=== PATIENT | male | born 1955 | race Caucasian/White ===

== ENCOUNTER → 2017-10-06 | Outpatient (CLI) | payer OTHER ==
[~2017-10-06] MED LIST: GADOBUTROL 10 ML VIAL IVP ONE
== END ==
LOC: FIMAGING 11:43
PROVIDERS: ATTEND Specialist
DX: N36.8 Other specified disorders of urethra (principal)
CPT/HCPCS: A9585

== ENCOUNTER 2017-10-14 07:15 | Observation (INO) | payer OTHER ==
--- NOTE | 2017-10-14 13:45 | GHP ---
[f rep st] PREOP HISTORY AND PHYSICAL Amended report HISTORY OF PRESENT ILLNESS: This gentleman was referred because of urethral stricture symptoms with splayed urination and also he has had some redness at the meatus of the penis. On exam he had a significant meatal stenosis with a firm area to approximately 1 inch below the meatus on the urethra, and there was no blood coming per the urethra. He had had a CAT scan that showed pelvic lymphadenopathy and inguinal lymphadenopathy, question metastatic cancer or lymphoma. I did a cystoscopy in the office that showed he had severe meatal stenoses with abnormal urethral tissue appearance, and there was a biopsy of the urethra performed. 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 So, P16 positive. He then had an MRI of the corpora and penis as well as pelvis and confirmed his lymphadenopathy. His corporal body seemed to be intact and there seemed to be no involvement of the corpora from this distal urethral cancer. After reviewing up to date and discussing his case at [facility], it has been elected that he should undergo a distal urethrectomy and attempted penile salvage with a mid penile shaft urethral placement. Of interest, he also on MRI has a lesion in the bladder that is concerning for transitional cell carcinoma and so he will undergo cystoscopy and biopsy of that lesion and at the same time, probably will undergo biopsy of lymph node with a needle biopsy to confirm positive brittany disease. It is unlikely with a distal urethral cancer, HPV positive, that it is probably going to be invasive and will be a T4 with node positive disease. Will undergo postop adjuvant chemotherapy with possible radiation and potential lymph node dissection. This will be discussed after final pathology. PAST MEDICAL HISTORY: He has had abnormal prostate exams. He has had herpetic lesions of the genitalia. He has had kidney stones. He has a lymphadenopathy. PAST SURGICAL HISTORY: Hernia repair. MEDICATIONS: No current medications. ALLERGIES: Acetaminophen. FAMILY HISTORY: No significant history noted. SOCIAL HISTORY: Rare alcohol consumption, and he is a former tobacco smoker. He is . His has no history of genitourinary pathology. IMMUNIZATIONS: Up to date. REVIEW OF SYSTEMS: Negative cardiac, respiratory, GI and endocrine. has noted the abnormal urine stream. He has had no peripheral extremity lower edema. PHYSICAL EXAMINATION: VITAL SIGNS: Stable. CHEST: Clear. HEART: Regular rate and rhythm. ABDOMEN: Normal. No organomegaly, rebound, or guarding. LOWER EXTREMITIES: Normal. GENITAL: Penis is circumcised with no lesions present. He has the meatus and fossa firmness with indentation of the meatus that implies that this is not a glans penis squamous cell involvement, but more of a distal urethral involvement. Groin has the severe lymphadenopathy right greater than left. NEUROLOGIC: He is oriented x3. He has had no neurologic abnormalities noted. GENERAL APPEARANCE: Denies any weight loss. PLAN: At the present time we have reviewed his MRI and CT scan with his biopsy results and reviewed his case at the [facility], and he is to undergo a distal urethrectomy, node biopsy of the groin, and a cystoscopy with a possible TURBT. Of note, this had been scheduled through the office to be done Wednesday morning and we were unable to get the patient contacted to confirm he was to have the surgery on multiple attempts and he did show up Wednesday morning to the operating suite to undergo surgery. That was canceled because of scheduling issues. He did go home and had breakfast and then we were able to reschedule it for 3 o' clock so he would have a window of time where had had nothing to eat or drink prior to anesthesia. /[id number]/MODL Add acc#, 10/14/17, courtney PANDYA
[2017-10-14] MEDS ORDERED: ceFAZolin 2 GM/SWFI 2 GM/20 ML SYR IVP ONE (14:13)
[2017-10-14] MEDS ORDERED: LIDOCAINE 1% 2 ML INJ ID PRN (14:16)
[2017-10-14] MEDS ORDERED: LR 1,000 ML IV ONE (14:16)
[2017-10-14] MEDS ORDERED: LIDOCAINE 1% 2 ML INJ ONE (14:26)
[2017-10-14] MEDS ORDERED: LIDOCAINE 2% JELLY 20 ML (UROJECT) ONE (15:07)
[2017-10-14] MEDS ORDERED: MIDAZOLAM 2 MG/2 ML VIAL ONE (15:50)
[2017-10-14] MEDS ORDERED: MIDAZOLAM 2 MG/2 ML VIAL IVP ONE (15:51)
--- NOTE | 2017-10-14 15:52 | PDANEPAE ---
ANE History of Present Illness bladder cancer ANE Past Medical History - Cardiovascular History Hx Hypertension: No Hx Arrhythmias: No Hx Chest Pain: No Hx Coronary Artery / Peripheral Vascular Disease: No Hx CHF / Valvular Disease: No Hx Palpitations: No - Pulmonary History Hx COPD: No Hx Asthma/Reactive Airway Disease: No Hx Recent Upper Respiratory Infection: No Hx Oxygen in Use at Home: No Hx Sleep Apnea: No Sleep Apnea Screening Result - Last Documented: Positive - Neurologic History Hx Cerebrovascular Accident: No Hx Seizures: No Hx Dementia: No - Endocrine History Hx Diabetes: No - Renal History Hx Renal Disorders: No Renal History Comment: kidney stones, spot in bladder on MRI, urethra obstructed - Liver History Hx Hepatic Disorders: No - Neurological & Psychiatric Hx Hx Neurological and Psychiatric Disorders: No - Cancer History Hx Cancer: Yes Cancer History Comment: poss bladder, basal skin cancers - Congenital Disorder History Hx Congenital Disorders: No - GI History Hx Gastrointestinal Disorders: No - Surgical History Prior Surgeries: double lap inguinal hernia, age 13 and age 16 UTI'S hospitalized ANE Review of Systems Review of Systems: - Exercise capacity METS (RN): 4 METS ANE Patient History - Allergies Allergies/Adverse Reactions: acetaminophen [Acetaminophen] Allergy (Intermediate, Verified 02/29/16 10:12) Hives ciprofloxacin [From Cipro] Allergy (Verified 10/13/17 10:55) kidney stones - Home Medications Home Medications: NK [No Known Home Meds] 10/13/17 [Last Taken Unknown] - NPO status NPO Since - Liquids (Date): 10/14/17 NPO Since - Liquids (Time): 13:15 NPO Since - Solids (Date): 10/14/17 NPO Since - Solids (Time): 07:30 - Smoking Hx Smoking Status: Former smoker ANE Labs/Vital Signs - Vital Signs Vital Signs: reviewed preoperatively; see RN documention for details Blood Pressure: 130/85 Heart Rate: 103 Respiratory Rate: 20 O2 Sat (%): 97 Height: 177.8 cm Weight: 88.451 kg ANE Physical Exam - Airway Neck exam: FROM Mallampati Score: Class 1 Mouth exam: normal dental/mouth exam - Pulmonary Pulmonary: no respiratory distress - Cardiovascular Cardiovascular: regular rate and rhythym - ASA Status ASA Status: II ANE Anesthesia Plan Anesthesia Plan: general endotracheal anesthesia
[2017-10-14] MEDS ORDERED: PROPOFOL 200 MG/20 ML VIAL ONE ×2 (15:54→16:42)
[2017-10-14] MEDS ORDERED: fentaNYL 100 MCG/2 ML INJ ONE ×2 (15:54)
[2017-10-14] MEDS ORDERED: ROCURONIUM 50 MG/5 ML VIAL ONE (15:54)
[2017-10-14] MEDS ORDERED: BUPIVACAINE/EPI 0.5% 30 ML SDV ONE (16:22)
[2017-10-14] MEDS ORDERED: HYDROmorphONE/DILAUDID 2 MG/ML INJ ONE (16:41)
[2017-10-14] MEDS ORDERED: fentaNYL 100 MCG/2 ML INJ IVP PRN (17:13)
[2017-10-14] MEDS ORDERED: HYDROmorphONE/DILAUDID 1 MG/ML INJ IVP PRN (17:13)
[2017-10-14] MEDS ORDERED: NALOXONE HCL 0.4 MG/ML INJ IVP PRN ×2 (17:13→18:34)
[2017-10-14] MEDS ORDERED: ONDANSETRON 4 MG/2 ML VIAL IVP PRN ×2 (17:13→18:34)
[2017-10-14] MEDS ORDERED: DEXAMETHASONE 4 MG/ML VIAL IVP PRN (17:13)
[2017-10-14] MEDS ORDERED: BACITRACIN ZINC 14.2 GM OINTTUBE TP ONE (17:57)
[2017-10-14] MEDS ORDERED: ONDANSETRON 4 MG/2 ML VIAL ONE (18:10)
[2017-10-14] MEDS ORDERED: DEXAMETHASONE 4 MG/ML VIAL ONE (18:10)
--- NOTE | 2017-10-14 18:22 | POSTANESTH ---
Post Anesthetic Evaluation Cardiovascular Status: Normal, Stable Respiratory Status: Normal, Stable Level of Consciousness/Mental Status: Can Participate in Eval Pain Control: Adequate, Prn Tx Ordered Nausea/Vomiting Control: Adequate, Prn Tx Ordered Complications Possibly Related to Anesthesia: None Noted
[2017-10-14] MEDS ORDERED: ZOLPIDEM TARTRATE 5 MG TAB PO PRN (18:34)
[2017-10-14] MEDS ORDERED: ACETAMINOPHEN 325 MG TAB PO PRN (18:34)
[2017-10-14] MEDS ORDERED: OXYCODONE/APAP 5/325 TAB PO PRN (18:34)
[2017-10-14] MEDS ORDERED: HYDROmorphONE/DILAUDID 6 MG/30 ML PCA IV PRN (18:34)
[2017-10-14] MEDS ORDERED: ONDANSETRON DISINTEGRATING 4 MG TAB PO PRN (18:34)
--- NOTE | 2017-10-14 18:38 | POSTOPPROG ---
Post Op Note Date of Operation: 10/14/17 Surgeon: Danny Coburn Anesthesia: LMA Pre-op Diagnosis: urethral cancer, TCC bladder Procedure: urethrectomy, node bx, cysto Inf/Abcess present in the surg proc area at time of surgery?: No EBL: Minimal Drains: Other (fernández) Specimen(s): sent--dictated
[2017-10-14] MEDS ORDERED: IBUPROFEN 600 MG TAB PO PRN (18:55)
--- NOTE | 2017-10-14 19:21 | GOP ---
[f rep st] OPERATIVE REPORT DATE OF OPERATION: 10/14/2017 SURGEON: Danny Coburn MD PREOPERATIVE DIAGNOSIS: 1. Carcinoma in situ, distal urethra. 2. Bladder lesion. POSTOPERATIVE DIAGNOSIS: 1. Carcinoma in situ, distal urethra. 2. Bladder tumor. PROCEDURE PERFORMED: FINDINGS: Needle biopsy of both right groin and left groin palpable nodes. Frozen section on the ri ght side noted no brittany tissue and no diagnostic features and the left side I sent for permanent. Th carmelo biopsies were done and then the tumor from the urethra noted initially the proximal urethral louis in was invaded, so then I went back and took another centimeter of urethra and the proximal end of th at was without cancer. DESCRIPTION OF PROCEDURE: Cystoscopy, bilateral inguinal lymph node biopsy, needle biopsy, and dista l penectomy with penile salvage procedure. Underwent general anesthesia, was prepped and draped in normal sterile fashion and had the right ingu inal lymph nodes palpated and well away from the vessels of the leg. Pranav-Cut needle was passed and a biopsy was obtained. I did 4 biopsy passes and all of them were into the brittany tissue. Frozen sect ion revealed no significant pathology. I did 2 needle passes of the left inguinal node that was palp able and sent those for permanent sections. There was no bleeding significant after that procedure and then with the appropriate time-out, I outl ined the dissection margins of the meatus and urethra, incised the skin in the mid part of the penis and then went up to the mid penile urethra. Dissected out the corporal bodies and dissected that up. Went around the glans so that there would be a skin margin from the meatus, 0.5 cm in resection mar gin. Then, that was taken down. All the tissue grossly felt normal as far as the dissection margin and the glans and the urethral margin. Took that off the corporal body and then went lateral in an a ttempt to make sure there was no tumor palpable noted. There was a nodular area into the left side of the glans that was subcutaneous and I excised that and it came back squamous cell carcinoma, invasive in the nodule, so that was taken out at the mid ureth ra and then I started closing that and then got the phone call on the frozen section. The proximal m argin was positive, so I went back and took an additional 1 cm of urethra and dissected that and that proximal margin came back without malignancy. Then, at that point, I did the urethrostomy near the penoscrotal junction and then approximated the corpora in the midline. There was no corporotomy iden tified. I was able to reapproximate the glans penis and fashion it with interrupted 4-0 Vicryl sutures and th en the glans skin was approximated with a 5-0 Vicryl stitch. The urethra was matured with 4-0 Vicryl and then the skin and corporal bodies and subcutaneous tissue approximated with 4-0 Vicryl. Then, tasha aparicio had a sterile dressing placed, but prior to that I did a cystoscopy with a flexible scope and revea led he had transitional cell carcinoma of the bladder. Because of the frozen section, he may need fu rther extirpative surgery. I elected not to do the TURBT at this time and will need to do that at a l ater time. That appeared to be low-grade and was as seen on the MRI on the posterior bladder. After that, I placed a 16 Watkins catheter. Urine was clear and I had put a Coban dressing on the penis. Lorenzo aparicio took the tourniquet off the penis and there was no significant bleeding or staining of the dressing . At the present time, he will be admitted postoperatively. I discussed with the the preliminary biopsy reports and my impression is that with the positive margin noted in the fibrous tissue on the left side of the penis subcutaneously. The question is myers s he need a penectomy, glansectomy for attempted excision of that or should we go ahead with adjuvant chemotherapy or radiation and then at that point consider further treatment. I will discuss that wi th him and his family and then take it back to tumor board. At the present time, I have elected to n ot do the penectomy in light of the frozen section because the gentleman was initially somewhat oppos ed to that idea and we will discuss it further. He will be transferred to the recovery room and be admitted postoperatively and I will discuss the fi ndtrae with his . SURGEON: Danny Coburn MD /[id number]/MODL
[2017-10-14] MEDS: D5W 1/2 NS 1,000 ML IV SCH (20:07)
[2017-10-14 22:02] VITALS: RESP 16
[2017-10-14] MEDS: oxyCODONE IR 5 MG TAB PO PRN (23:31)
[2017-10-15] MEDS: oxyCODONE IR 5 MG TAB PO PRN (03:04)
[2017-10-15] MEDS: D5W 1/2 NS 1,000 ML IV SCH (05:06)
[2017-10-15 08:57] VITALS: O2SAT 90
[2017-10-15 11:30] VITALS: BP 117/67; PULSE 90; TEMP 98.1
--- NOTE | 2017-10-15 16:29 | ASMTCMCOM ---
CM Note CM Note Notes: Pt admitted for surgery with Dr Coburn for bladder cancer today. Pt recovering. Dr Coburn needs to discuss findings with pt which determine next steps. Pt's DC needs are TBD. CM will continue to follow. Date Signed: 10/15/2017 04:29 PM Electronically Signed By:Daiana Vallejo LCSW
--- NOTE | 2017-10-15 20:57 | GDS ---
[f rep st] DISCHARGE SUMMARY ADMISSION DIAGNOSIS: Urethral carcinoma. DISCHARGE DIAGNOSIS: Squamous cell carcinoma of the urethra, with a metastatic nodule adjacent to th e subcutaneous penis and lymph nodes, pathology pending on final. HOSPITAL COURSE: Gentleman was an a.m. admission and had the above distal urethrectomy, urethrostomy , cystoscopy, confirming a bladder tumor that has not been resected at the present time and lymph nod e biopsies. Postop day 1, he is doing well and catheter is draining well. I undressed the glans pen is and he had good appearance of the glans penis. It was redressed and will leave the dressing on. I will plan to see him on Wednesday for removal of the dressing and may pull his catheter at that khari e, depending on the findings. Final pathology is pending. I have discussed with him and his in detail the potential clinical options based on the final pathology, and he may need a distal penecto my. Will recommend that he see oncologist, and I have asked Dr. Franco to visit with him prior to h is discharge if possible, and no complications encountered. Blood loss during the procedure was mini mal and at the present time, he is doing well. Discharge home and follow up as outlined. Pathology pending. /[id number]/MODL
--- NOTE | 2017-10-15 21:02 | GCON ---
[f rep st] CONSULTATION MEDICAL ONCOLOGY CONSULTATION CONSULTATION REQUESTED BY: Dr. Danny Coburn. REASON FOR CONSULTATION: Further workup and management of squamous cell carcinoma of the urethra. RECOMMENDATIONS: 1. As an outpatient, I would do a PET-CT scan to further evaluate the extent of disease. 2. Depending on the extent of disease, patient will be treated with palliative for curative intent. 3. Since this is a fairly uncommon tumor without large randomized series to help define definitive t herapy, we will use general oncology principles for workup and treatment recommendations in addition to querying the authors of published series of this tumor. 4. This does appear to be an HPV-positive tumor. It is unclear with this particular location whethe r this in part is a better prognosis or not. ASSESSMENT: This 62-year-old white male presented with complaints of an abnormal urinary stream whic h began approximately at the end of July 2017. Initially, this was felt to perhaps represent an i nfection or perhaps a stone in his urethra. The patient was initially treated with antibiotics witho ut benefit. He subsequently was referred to Dr. Danny Coburn, who did a urethroscopy with biopsy. Th e patient was found to have HPV positive squamous cell carcinoma. Patient also noticed lymph node en largement in his right and left groin. The right side was noted first. He has noticed no other lymp hadenopathy. He has had no systemic symptoms. He denies any cough, shortness of breath, pain, ortiz e in bowel habits. The patient does have some history of coal tar exposure at work. However, this did not appear to be particularly prominent. He had a several-year history of cigarette smoking, but quit approximately 8 years ago. If the patient does not have evidence of distant metastatic disease, he will be treated with curative intent. Various regimens have been used in the past. Some have been patterned after treatment for squamous cell carcinoma of the anus. This would include either mitomycin plus 5-FU or cisplatin plus 5-FU in addition to radiation. Surgery has been reserved for combined modality failures. I spoke i n general terms with the patient about curative versus palliative intent. We also discussed my modal ity therapy. At this time, he will be discharged to home. I have given my card, and I asked him to call on Miriam alexis to establish a followup appointment. Also a note to my office regarding the fact that he will be c alling for an appointment and we will get him seen next week in a timely fashion. Part of his workup will include a PET-CT scan. This will need to wait at least 2 weeks from his recent surgery to mini antonio the chance of false positives. HISTORY OF PRESENT ILLNESS: Please see assessment. PAST MEDICAL HISTORY: Essentially otherwise unremarkable. SOCIAL HISTORY: The patient formerly smoked approximately a pack and half cigarettes per day. He qu it 8 years ago. He drinks alcohol only rarely. 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 FAMILY HISTORY: Remarkable for a niece with ovarian cancer and an uncle with head and neck cancer. REVIEW OF SYSTEMS: Remarkable for the abnormal urinary stream and his inguinal lymphadenopathy. His 10 system review is otherwise unremarkable. PHYSICAL EXAMINATION: GENERAL: Reveals a well-developed, alert and articulate white male in no acut e distress. HEENT: Exam is unremarkable. NECK: His neck shows no adenopathy. LUNGS: Clear to au scultation and percussion. CARDIAC: Exam shows regular rate and rhythm. ABDOMEN: Abdominal exam s hows soft abdomen with active bowel sounds. No hepatosplenomegaly is noted. GENITOURINARY: His pen is is wrapped, and I have not taken down the dressing. EXTREMITIES: His lower extremities show no e raffy. LYMPHATIC: His lymph nodes show bilateral inguinal lymphadenopathy that is firm, round, and a pproximately 2 cm in diameter bilaterally. Thank you very much for allowing me to participate in this pleasant gentleman's oncologic care. We l billie forward to assisting in his management going forward. /[id number]/MODL
== END 2017-10-15 17:51 | disposition home or self-care (01) ==
LOC: F3E 13:25 → F1N 18:14
PROVIDERS: ADMIT Specialist; ATTEND Specialist
DX: C68.0 Malignant neoplasm of urethra (principal); C67.9 Malignant neoplasm of bladder, unspecified; C60.1 Malignant neoplasm of glans penis; R59.1 Generalized enlarged lymph nodes; B97.7 Papillomavirus as the cause of diseases classified elsewhere; Z87.442 Personal history of urinary calculi; Z87.891 Personal history of nicotine dependence; Z87.440 Personal history of urinary (tract) infections
CPT/HCPCS: 38505; 53220; 54120; G0378; J0690; J1100; J1170; J2250; J2405; J2704; J3010

== ENCOUNTER → 2017-12-03 | Day surgery (SDC) | payer OTHER | END | disposition home or self-care (01) | LOC: FIMAGING 12:26 | PROVIDERS: ATTEND Physician Assistant | PROC: 02HV33Z Insertion of Infusion Device into Superior Vena Cava, Percutaneous Approach (ICD-10-PCS; principal; 2017-12-03) | DX: C60.9 Malignant neoplasm of penis, unspecified (principal) | CPT/HCPCS: 36569; 77001; C1751 ==

== ENCOUNTER 2018-03-04 18:11 | Emergency (ER) | payer OTHER ==
--- NOTE | 2018-03-04 18:55 | EDPHY ---
H & P Stated Complaint: DVT L LEG CONFIRMED U/S/URINARY TRACT CA RADIATION CHEMO 1 MONTH Time Seen by Provider: 03/04/18 18:37 HPI/ROS: Chief complaint: Left leg DVT History of present illness: This is a 62-year-old male who was sent from Radiology for left leg DVT. Patient has a history of urethral and bladder cancer. He is followed by Dr. Franco of Oncology. His last treatment was a month ago. He developed some soreness in the left leg over the last few days. Outpatient ultrasound was obtained which showed a DVT in the gastrocnemius vein. He denies fevers. He denies chest pain, shortness of breath or cough. He has never had a DVT before. He is not on any blood thinning medications. Review of systems: A 10 point review of systems was obtained and other than described above was negative - Personal History Current Tetanus Diphtheria and Acellular Pertussis (TDAP): Yes Tetanus Vaccine Date: within 10 years - Medical/Surgical History Hx Asthma: No Hx Chronic Respiratory Disease: No Hx Diabetes: No Hx Cardiac Disease: No Hx Renal Disease: No Hx Cirrhosis: No Hx Alcoholism: No Hx HIV/AIDS: No Hx Splenectomy or Spleen Trauma: No Other PMH: Smokes marijuana, hernia repair, diverticulitis, URINARY TRACT CA, TREATED CHEMO/RADIATION JANUARY/2018 - Social History Smoking Status: Former smoker - Physical Exam Exam: General Appearance: Alert and no distress. Eyes: Pupils equal and round no injection. Respiratory: Chest is non tender, lungs are clear to auscultation. Cardiovascular: regular rate and rhythm. DP and PT pulses 2+. Gastrointestinal: Abdomen is soft and non tender, no masses, bowel sounds normal. Musculoskeletal: Neck is supple and non tender. Extremities have full range of motion and are non tender. Skin: No rashes or lesions. Neurological: Alert and oriented x4. Strength and sensation intact and symmetrical. Constitutional: Initial Vital Signs Temperature (C) 36.5 C 03/04/18 18:16 Heart Rate 105 H 03/04/18 18:16 Respiratory Rate 16 03/04/18 18:16 Blood Pressure 122/76 H 03/04/18 18:16 O2 Sat (%) 94 03/04/18 18:16 O2 Delivery Mode Room Air Allergies/Adverse Reactions: acetaminophen [Acetaminophen] Allergy (Intermediate, Verified 02/29/16 10:12) Hives ciprofloxacin [From Cipro] Allergy (Verified 10/13/17 10:55) kidney stones Home Medications: Medication Instructions Recorded Fentanyl 03/04/18 LORAZEPAM 03/04/18 Oxycodone HCl 03/04/18 Rivaroxaban [Xarelto 15mg (*)] 15 mg PO BID 21 Days tab 03/04/18 Medical Decision Making - Diagnostics Imaging: Discussed imaging studies w/ call or contact centre manager Radiologist ED Course/Re-evaluation: Patient was discussed with my secondary supervising physician Dr. Leticia Arthur. Patient presents for a DVT in the left leg. The leg is neurovascularly intact. I have reviewed the ultrasound report,he does not appear to be have a heavy clot burden. No evidence PE. Patient had blood studies obtained today including CBC and chemistry. He has a mild anemia which appears to be his baseline as compared to previous studies. PT/PTT are obtained. He is started on Xarelto. He is discharged with a prescription for 3 weeks worth. He understands that when he finishes this prescriptions he still needs to continue the medication but will need to discuss this with his balance truing inspector/oncologist to determine how long he needs to be on treatment for. Strict return precautions were given. Differential Diagnosis: Included but not limited to DVT, superficial thrombophlebitis, unlikely PE or other complications - Data Points Medications Given: Discontinued Medications Rivaroxaban (Xarelto) 15 mg PO EDNOW ONE Stop: 03/04/18 19:14 Last Admin: 03/04/18 19:24 Dose: 15 mg Departure - Departure Disposition: Home, Routine, Self-Care Clinical Impression: DVT (deep venous thrombosis) Qualifiers: DVT location: lower extremity Affected thrombotic vein of extremity: unspecified lower extremity distal vein Chronicity: acute Laterality: left Qualified Code(s): I82.4Z2 - Acute embolism and thrombosis of unspecified deep veins of left distal lower extremity Condition: Good Instructions: Rivaroxaban (By mouth), Deep Vein Thrombosis (ED) Additional Instructions: Follow-up with your oncologist on Wednesday or Wednesday for recheck You were given your 1st dose of blood thinning medication in the emergency room tonight. Please start taking it tomorrow morning twice a day for 3 weeks. When he finished this 3 week course that I have prescribed you are not finished with your treatment. You will need to discuss how long You need to be treated for with your balance truing inspector. If for any reason you are unable to get your blood thinning medication tomorrow please contact the emergency room or your oncologist immediately If symptoms worsen or new symptoms develop return to the emergency room for recheck Referrals: Danny Coburn MD [Primary Care Provider] - As per Instructions Celso Franco MD [Medical Doctor] - As per Instructions Prescriptions: Rivaroxaban [Xarelto 15mg (*)] 15 mg PO BID 21 Days tab
[2018-03-04 19:07] LABS: INR 1.06 (0.83-1.16)
[2018-03-04] MEDS ORDERED: RIVAROXABAN 15 MG TAB PO ONE (19:13)
[2018-03-04 19:41] VITALS: BP 124/74
== END 2018-03-04 19:39 | disposition home or self-care (01) ==
DX: I82.4Z2 Acute embolism and thrombosis of unspecified deep veins of left distal lower extremity (principal); Z85.51 Personal history of malignant neoplasm of bladder; Z85.54 Personal history of malignant neoplasm of ureter; Z87.891 Personal history of nicotine dependence

== ENCOUNTER 2018-04-26 10:11 | Day surgery (SDC) | payer OTHER ==
[2018-04-26] MEDS ORDERED: NS 1,000 ML IV SCH (10:45)
[2018-04-26] MEDS ORDERED: MEPERIDINE 25 MG/ML SYR IVP PRN (10:45)
[2018-04-26] MEDS ORDERED: FLUMAZENIL 0.5 MG/5 ML MDV IVP PRN (10:45)
[2018-04-26] MEDS ORDERED: MIDAZOLAM 2 MG/2 ML VIAL IVP PRN (10:45)
[2018-04-26] MEDS ORDERED: fentaNYL 100 MCG/2 ML INJ IVP PRN (10:45)
[2018-04-26] MEDS ORDERED: NALOXONE HCL 0.4 MG/ML INJ IVP PRN (10:45)
[2018-04-26] MEDS ORDERED: NALOXONE HCL 0.4 MG/ML INJ ONE (10:50)
[2018-04-26] MEDS ORDERED: MIDAZOLAM 2 MG/2 ML VIAL ONE (10:51)
[2018-04-26] MEDS ORDERED: FLUMAZENIL 0.5 MG/5 ML MDV IVP ONE (10:51)
[2018-04-26] MEDS ORDERED: fentaNYL 100 MCG/2 ML INJ ONE (10:51)
--- NOTE | 2018-04-26 11:17 | PDRADPRE ---
Radiology History & Physical Indication for procedure: lung nodule/mass Home medications: Fentanyl 12.5 mg PERCUT 03/04/18 [Last Taken Unknown] LORAZEPAM 1 mg PO BID PRN 03/04/18 [Last Taken Unknown] Oxycodone HCl 5 mg PO BID PRN 03/04/18 [Last Taken Unknown] Ondansetron 8 mg PO PRN 04/25/18 [Last Taken Unknown] Rivaroxaban [Xarelto 15mg (*)] 20 mg PO DAILY 04/25/18 [Last Taken 04/25/18 07: 30 20 mg] Stool Softener Tablet 1 tab PO DAILY 04/25/18 [Last Taken Unknown] Allergies/Adverse Reactions: acetaminophen [Acetaminophen] Allergy (Intermediate, Verified 04/25/18 17:22) Hives ciprofloxacin [From Cipro] Allergy (Verified 04/25/18 17:22) kidney stones Mental status: A&Ox3 Heart exam: regular rate and rhythm Mallampati Score: Class 2 (ASA 3)
[2018-04-26 11:57] LABS: INR 1.09 (0.83-1.16); PROTIME(PATIENT) 14.3 SEC (12.0-15.0)
[2018-04-26] MEDS ORDERED: LIDOCAINE 1% 300 MG/30 ML SDV ONE (12:12)
[2018-04-26] MEDS ORDERED: ONDANSETRON 4 MG/2 ML VIAL IVP PRN (12:59)
--- NOTE | 2018-04-26 13:11 | PDRADPN ---
Radiology Procedure Note Date of Procedure: 04/26/18 Radiologist: Zunilda Cole Anesthesia: IV Sedation Pre-op Diagnosis: lung nodules Post-op Diagnosis: same Procedure: left lung nodule biopsy Inf/Abcess present in the surg proc area at time of surgery?: No
[2018-04-26 16:28] VITALS: BP 116/72
== END 2018-04-26 16:28 | disposition home or self-care (01) ==
LOC: FIMAGING 10:11
PROVIDERS: ATTEND Internal Medicine Hematology & Oncology
PROC: 0BBJ3ZX Excision of Left Lower Lung Lobe, Percutaneous Approach, Diagnostic (ICD-10-PCS; principal; 2018-04-26 13:07)
DX: R91.1 Solitary pulmonary nodule (principal); C68.0 Malignant neoplasm of urethra
CPT/HCPCS: J2250; J2310; J3010